=== PATIENT | female | born 1980 | race African-American/Black ===

== ENCOUNTER 2021-10-09 05:45 | Inpatient (IN) | payer BC ==
[~2021-10-09 05:45] MED LIST: CITRIC ACID/SODIUM CITRATE 30 ML UNIT-DOSE CUP PO ONE; ELECTROLYTE-148 SOLN 500 ML IV ONE
[2021-10-09 06:41] VITALS: BMI 31.3
[2021-10-09] MEDS: ELECTROLYTE-148 SOLN 1,000 ML IV SCH (07:18)
[2021-10-09] MEDS ORDERED: ERYTHROMYCIN 0.5% OPHTHALMIC OINTMENT 3.5 GM TUBE OU ONE (09:10)
[2021-10-09] MEDS ORDERED: PHYTONADIONE NEONATAL 1 MG/0.5 ML AMP IM ONE (09:10)
[2021-10-09] MEDS: OXYTOCIN 20 UNITS in 0.9% NS 20 UNIT/1,000 ML INFUS.BAG IV SCH ×2 (09:45→19:15)
[2021-10-09] MEDS ORDERED: OXYTOCIN 20 UNITS in 0.9% NS 20 UNIT/1,000 ML INFUS.BAG IV ONE (09:47)
[2021-10-09] MEDS ORDERED: SENNOSIDES/DOCUSATE COMBO (SENNA PLUS) TABLET (UD) PO PRN (10:01)
[2021-10-09] MEDS ORDERED: ACETAMINOPHEN 325 MG TABLET (FP) PO PRN (10:01)
[2021-10-09] MEDS ORDERED: CITRIC ACID/SODIUM CITRATE 30 ML UNIT-DOSE CUP PO ONE (10:03)
[2021-10-09] MEDS: IBUPROFEN 800 MG/8 ML IJ IVPB PRN (13:12)
[2021-10-09] MEDS ORDERED: oxyCODONE HCL 5 MG TABLET PO PRN (22:01)
[2021-10-10] MEDS: METHYLERGONOVINE MALEATE 0.2 MG/1 ML AMP IM PRN ×2 (01:29→06:16)
[2021-10-10] MEDS: SIMETHICONE 80 MG TAB.CHEW (FP) PO PRN ×4 (01:29→21:59)
[2021-10-10] MEDS: IBUPROFEN 800 MG/8 ML IJ IVPB PRN ×3 (01:29→17:23)
[2021-10-10] MEDS: PRENATAL VITAMINS W/ FOLIC ACID TABLET (FP) PO SCH (09:36)
[2021-10-10] MEDS ORDERED: BISACODYL 10 MG SUPP.RECT RC PRN (10:01)
[2021-10-10 10:41] LABS: BASO % 0.1 % (0-2.0); EOS % 1.5 % (0-4.5); HEMATOCRIT 33.8 % (32.4-45.2); HEMOGLOBIN 11.5 GM/dL (10.7-15.3); LYMPH % 9.2 % (8-40); MCH 30.9 pg (25.7-33.7); MCHC 33.9 g/dl (32.0-36.0); MEAN CELL VOLUME 91.2 fl (80-96); MEAN PLT VOLUME 9.5 fl (7.5-11.1); MONO % 5.5 % (3.8-10.2); NEUT % 83.7 % (42.8-82.8); PLATELET COUNT 159 10^3/uL (134-434); RBC 3.71 M/mm3 (3.60-5.2); RDW 14.9 % (11.6-15.6); WHITE BLOOD COUNT 8.4 K/mm3 (4.0-10.0)
[2021-10-10] MEDS: ELECTROLYTE-148 SOLN 1,000 ML IV SCH (19:43)
[2021-10-10] MEDS: OXYTOCIN 20 UNITS in 0.9% NS 20 UNIT/1,000 ML INFUS.BAG IV SCH (19:43)
[2021-10-10] MEDS: oxyCODONE HCL 5 MG TABLET PO PRN (22:00)
[2021-10-11] MEDS: SIMETHICONE 80 MG TAB.CHEW (FP) PO PRN ×4 (02:12→19:46)
[2021-10-11] MEDS: oxyCODONE HCL 5 MG TABLET PO PRN ×3 (02:12→19:46)
[2021-10-11] MEDS: PRENATAL VITAMINS W/ FOLIC ACID TABLET (FP) PO SCH (09:18)
[2021-10-11] MEDS: IBUPROFEN 600 MG TABLET (FP) PO PRN (13:31)
[2021-10-12] MEDS: SIMETHICONE 80 MG TAB.CHEW (FP) PO PRN ×3 (00:15→09:24)
[2021-10-12] MEDS: oxyCODONE HCL 5 MG TABLET PO PRN ×2 (00:15→05:52)
[2021-10-12 09:03] VITALS: TEMP 98.6
[2021-10-12] MEDS: PRENATAL VITAMINS W/ FOLIC ACID TABLET (FP) PO SCH (09:24)
[2021-10-12] MEDS: IBUPROFEN 600 MG TABLET (FP) PO PRN (09:24)
[2021-10-12 10:16] VITALS: BP 134/81; PULSE 86
== END 2021-10-12 12:10 | disposition home or self-care (01) | DRG 788 ==
LOC: JLDR 05:45
PROVIDERS: ADMIT Obstetrics & Gynecology; ATTEND Obstetrics & Gynecology
PROC: 10D00Z1 Extraction of Products of Conception, Low, Open Approach (ICD-10-PCS; principal; 2021-10-09)
PROC: 10D07Z6 Extraction of Products of Conception, Vacuum, Via Natural or Artificial Opening (ICD-10-PCS; 2021-10-09)
DX: O34.211 Maternal care for low transverse scar from previous cesarean delivery (principal); N85.8 Other specified noninflammatory disorders of uterus; O32.2XX0 Maternal care for transverse and oblique lie, not applicable or unspecified; O34.13 Maternal care for benign tumor of corpus uteri, third trimester; Z3A.39 39 weeks gestation of pregnancy; Z37.0 Single live birth
CPT/HCPCS: 36415; 85025; 88307-TC